=== PATIENT | male | born 1995 | race Caucasian/White ===

== ENCOUNTER → 2016-06-09 | Outpatient (CLI) | payer BC | END | disposition home or self-care (01) | LOC: GMAJ 14:29 | PROVIDERS: ATTEND Family Medicine | DX: M79.609 Pain in unspecified limb (principal) ==

== ENCOUNTER 2018-11-05 15:07 | Observation (INO) | payer BC, OTHER ==
[2018-11-05] MEDS ORDERED: ONDANSETRON ODT 8 MG TAB SL ONE (15:23)
[2018-11-05] MEDS ORDERED: SODIUM CHLORIDE 0.9% 1000ML 1,000 ML IVS ONE (15:23)
[2018-11-05] MEDS ORDERED: ACETYLCYSTEIN 20 % 6,000 MG/30 ML VIAL PO ONE (16:28)
--- NOTE | 2018-11-05 17:24 | CT ---
PROCEDURE: CT Abdomen and Pelvis With Intravenous Contrast CLINICAL INDICATION: The patient is 23 years years old, Male; abd pain nv 8 days TECHNIQUE: Axial computed tomography images of the abdomen and pelvis with intravenous contrast. Sagittal and coronal reformatted images were created and reviewed. This CT exam was performed using one or more of the following dose reduction techniques: automated exposure control, adjustment of the mA and/or kV according to patient size, and/or use of iterative reconstruction technique. COMPARISON: No relevant prior studies available. FINDINGS: LUNG BASES: Unremarkable. No mass. No consolidation. No pleural effusions or pneumothoraces. ABDOMEN: LIVER: The liver is enlarged, measuring 22.6 cm longitudinally in the right lobe. There is a diffuse decrease in hepatic parenchymal density in comparison to a more dense thin rind along the pericholecystic area, consistent with fatty infiltration with minimal focal sparing. The attenuation of the liver measures 45 Hounsfield units as compared to the spleen which measures 88 Hounsfield units. There are no focal defects in the liver. GALLBLADDER AND BILE DUCTS: Unremarkable. There is no evidence of calculi or pericholecystic inflammatory changes. There is no biliary ductal dilatation. PANCREAS: There is some fatty infiltration of the pancreas without evidence of mass or acute pancreatitis. SPLEEN: The spleen is enlarged, measuring 17.1 cm longitudinally by 14.5 cm AP. ADRENALS: Unremarkable. No mass or calcification. KIDNEYS AND URETERS: Unremarkable. There are no acute findings. There is no evidence of solid renal mass, nonobstructive intrarenal calculi or pelvocaliectases/ureterectases. STOMACH AND BOWEL: Fluid-filled colon suggests hypersecretion or poor colonic water resorption as may occur with nonspecific gastroenteritis/enteritis or colitis. The stomach is unremarkable. There are a few mildly thick walled loops of small bowel in the right abdomen. There are few scattered colonic diverticula. No evidence of intestinal obstruction. PELVIS: APPENDIX: There are couple of punctate calcifications in the cecum, one along the appendiceal osseous, possibly small liths. The appendix is present and appears normal. BLADDER: Unremarkable, allowing for the degree of distention. There is no evidence of cystolithiasis or bladder mass. REPRODUCTIVE: The prostate and seminal vesicles are unremarkable.. ABDOMEN and PELVIS: INTRAPERITONEAL SPACE: Unremarkable. No free air or free fluid. No significant focal fluid collection. BONES/JOINTS: There is no evidence of acute fracture, osseous destruction or osteoblastic changes. SOFT TISSUES: Unremarkable. VASCULATURE: Unremarkable. No abdominal aortic aneurysm. LYMPH NODES: There are multiple nonspecific prominent lymph nodes in the mesentery. There is a diffuse inflammatory stranding throughout the central mesentery. There are multiple enlarged central mesenteric lymph nodes the largest with a short axis diameter up to 1.1 cm. IMPRESSION: 1. Mild hepatomegaly. 2. Hepatic steatosis with pericholecystic sparing. 3. Moderate splenomegaly. Most likely differential considerations include portal hypertension, infectious/inflammatory conditions, and hematologic diseases such as anemias and extra medullary hematopoiesis. Neoplasia, storage diseases and sequestration also in the differential but much less likely. Portal or splenic vein thrombosis also in the differential, although not present in this case. 4. Fluid-filled colon suggests hypersecretion or poor colonic water resorption as may occur with nonspecific gastroenteritis/enteritis or colitis. In conjunction with mild mural thickening in a few loops of ileum, nonspecific enteritis is most likely. 5. Nonspecific central mesenteric reticulation most likely represent a viral mesenteritis. This "terrell mesentery" can be idiopathic or result from various vascular disorders as well as neoplastic infiltration. A follow up examination is recommended as clinically warranted. 6. Mild central mesenteric adenopathy. Electronically signed by: Angie Irwin MD 11/05/2018 5:22 PM CDT
[2018-11-05] MEDS ORDERED: metroNIDAZOLE IV PREMIX 500MG 500 MG in PREMIX BAG 1 BAG IVPB ONE (17:42)
[2018-11-05] MEDS ORDERED: levoFLOXacin 500MG IV 500 MG in PREMIX BAG 1 BAG IVPB ONE (17:42)
[2018-11-05] MEDS ORDERED: levoFLOXacin 500MG IV 100 ML IVPB ONE (17:45)
--- NOTE | 2018-11-05 18:08 | ED.PDOC ---
History of Present Illness - General Chief Complaint: Abdominal Pain Stated Complaint: RUQ ABD PAIN Time Seen by Provider: 11/05/18 15:20 Source: patient Exam Limitations: no limitations - History of Present Illness Initial Comments: the patient is a 23-year-old male presenting to the emergency room secondary to symptoms lasting from 6-8 days. He has been having some intermittent nausea and vomiting. Today he started having more abdominal pain. No jaundice. No history of hepatitis. No sore throat or runny nose. Questionable fever in the last week. No history of any gallbladder or appendix issues in the past. No history of any dietary restrictions. No history of any cancers. He has been having some diarrhea that is watery. He has been having some vomitus but no blood and no bile. He was diaphoretic and his primary care doctor's appointment today. He was sent over here for additional workup. Timing/Duration: 1 week Severity: moderate Improving Factors: nothing Worsening Factors: nothing Associated Symptoms: diaphoresis, loss of appetite, malaise, nausea/vomiting, weakness Allergies/Adverse Reactions: Allergies NO KNOWN ALLERGY Allergy (Verified 11/05/18 15:13) Home Medications: Ambulatory Orders Citalopram Hydrobromide [Citalopram] 20 mg PO DAILY 11/05/18 metFORMIN HCL [Glucophage] 500 mg PO DAILY 11/05/18 Review of Systems - Review of Systems Constitutional: States: malaise EENTM: States: no symptoms reported Respiratory: States: no symptoms reported Cardiology: States: no symptoms reported Gastrointestinal/Abdominal: States: abdominal pain, diarrhea, nausea, vomiting Genitourinary: States: no symptoms reported Musculoskeletal: States: no symptoms reported Skin: States: no symptoms reported Neurological: States: no symptoms reported Endocrine: States: no symptoms reported All other Systems: No Change from Baseline Past Medical History (General) - Patient Medical History Hx Diabetes: Yes Hx Cancer: No Hx Hepatitis C: No Surgical History: tonsillectomy - Vaccination History Hx Tetanus, Diphtheria Vaccination: Yes Hx Influenza Vaccination: Yes Hx Pneumococcal Vaccination: No Immunizations Up to Date: No - Social History Hx Tobacco Use: No Hx Alcohol Use: No Hx Substance Use: No Hx Substance Use Treatment: No Hx Depression: No Family Medical History - Family History Mother Family History: No Known Living Status: Still Living Physical Exam - Physical Exam General Appearance: Alert, Ill Appearing Eye Exam: bilateral normal Ears, Nose, Throat: hearing grossly normal, normal ENT inspection Neck: full range of motion, supple Respiratory: lungs clear, normal breath sounds, no respiratory distress, no accessory muscle use Cardiovascular/Chest: normal peripheral pulses, no edema, tachycardia Peripheral Pulses: radial,right: 2+, radial,left: 2+, dorsalis pedis,right: 2+, dorsalis pedis,left: 2+ Gastrointestinal/Abdominal: other - obese. Diffuse vague discomfort. No palpable mass. Rectal Exam: deferred Back Exam: no CVA tenderness, no vertebral tenderness Extremity: normal range of motion, non-tender, normal inspection, no pedal edema, normal capillary refill Neurologic: supervising chef II-XII nml as tested, alert, normal mood/affect, oriented x 3 Skin Exam: normal color Comments: Vital Signs - 24 hr 11/05/18 15:18 Temperature 96.7 F L Pulse Rate [ 122 H MONITOR] Respiratory 20 Rate Blood Pressure 151/95 [LA] O2 Sat by Pulse 96 Oximetry Progress - Progress Progress: 11/05/18 18:09 the patient is a 23-year-old male presenting to emergency room with nausea and vomiting and diarrhea for the better part of a week. He was significantly tachycardic likely related to dehydration. He has finished his first liter. Blood culture has been performed. EBV and CMV titers are being sent. He is being placed empirically on broad-spectrum antibiotics of metronidazole and ciprofloxacin. Anti-emetics are being used to control symptoms. We will continue gentle hydration. The patient will be admitted for monitoring overnight to make sure he gets back hydrated and symptoms remain controlled. Obviously if symptoms persist or worsen then additional studies may be warranted. the patient does have some hepatosplenomegaly. The hepatomegaly may be due to fatty liver. These will need to be followed. 11/05/18 18:11 - Results/Orders Results/Orders: CT of abdomen and pelvis shows no evidence of overt acute gallbladder disease or appendicitis. He does have some mesenteric inflammation and lymphadenopathy. He does have mild small bowel thickening and some fluid in the intestine consistent with a diarrheal state. No obvious obstruction. No free air. No obvious ischemia. Laboratory Tests 11/05/18 11/05/18 11/05/18 15:08 15:08 15:08 WBC 11.9 H RBC 5.52 Hgb 16.6 Hct 48.1 MCV 87.2 MCH 30.1 MCHC 34.6 RDW 13.2 Plt Count 223 MPV 7.8 Absolute Neuts (auto) 9.80 H Absolute Lymphs (auto) 1.20 Absolute Monos (auto) 0.80 Absolute Eos (auto) 0.00 Absolute Basos (auto) 0.10 Neutrophils % 82.3 H Lymphocytes % 10.1 L Monocytes % 6.9 Eosinophils % 0.3 L Basophils % 0.4 Sodium 134 L Potassium 3.6 Chloride 99 L Carbon Dioxide 21 Anion Gap 17.6 BUN 12 Creatinine 1.12 BUN/Creatinine Ratio 10.7 Random Glucose 141 H Serum Osmolality 270.4 L Lactic Acid 1.3 Calcium 9.1 Magnesium 1.6 L Total Bilirubin 0.8 AST 33 ALT 56 Alkaline Phosphatase 46 Creatine Kinase 90 CK-MB (CK-2) 0.6 CK-MB (CK-2) % Not Reportable Troponin I < 0.02 Serum Total Protein 8.5 H Albumin 4.7 Globulin 3.8 H Albumin/Globulin Ratio 1.2 Amylase 38 Lipase 31 Urine Color Urine Appearance Urine pH Ur Specific [place] Urine Protein Urine Glucose (UA) Urine Ketones Urine Blood Urine Nitrite Urine Bilirubin Urine Urobilinogen Ur Leukocyte Esterase Urine RBC Urine WBC Ur Epithelial Cells Urine Bacteria 11/05/18 15:15 WBC RBC Hgb Hct MCV MCH MCHC RDW Plt Count MPV Absolute Neuts (auto) Absolute Lymphs (auto) Absolute Monos (auto) Absolute Eos (auto) Absolute Basos (auto) Neutrophils % Lymphocytes % Monocytes % Eosinophils % Basophils % Sodium Potassium Chloride Carbon Dioxide Anion Gap BUN Creatinine BUN/Creatinine Ratio Random Glucose Serum Osmolality Lactic Acid Calcium Magnesium Total Bilirubin AST ALT Alkaline Phosphatase Creatine Kinase CK-MB (CK-2) CK-MB (CK-2) % Troponin I Serum Total Protein Albumin Globulin Albumin/Globulin Ratio Amylase Lipase Urine Color Yellow Urine Appearance Clear Urine pH 6.0 Ur Specific [place] 1.020 Urine Protein 30 Urine Glucose (UA) Negative Urine Ketones Negative Urine Blood Negative Urine Nitrite Negative Urine Bilirubin Small H Urine Urobilinogen 0.2 Ur Leukocyte Esterase Negative Urine RBC 0-1 Urine WBC 0-1 Ur Epithelial Cells 0-1 Urine Bacteria 0 Departure - Departure Clinical Impression: Mesenteric adenitis, Moderate dehydration, Splenomegaly, Hepatomegaly Disposition: Admit Patient Departure Forms: ED Discharge - Pt. Copy, Patient Portal Self Enrollment Referrals: Xavier Eldridge MD [Primary Care Provider] - 1-2 Weeks Home Medications: Ambulatory Orders Citalopram Hydrobromide [Citalopram] 20 mg PO DAILY 11/05/18 metFORMIN HCL [Glucophage] 500 mg PO DAILY 11/05/18 Decision To Admit - Decistion To Admit Decision to Admit Reason: Medical Nature Decision to Admit Date: 11/05/18 Decision to Admit Time: 18:12
--- NOTE | 2018-11-05 18:31 | HP ---
SUPERVISING PHYSICIAN: Mary Lou Jeter MD CHIEF COMPLAINT: Right upper quadrant abdominal pain. HISTORY OF PRESENT ILLNESS: Mr. Raya is an 23-year-old male patient that presented to the Emergency Room after he was seen in Dr. Eldridge' office today. He noted he had been having nausea, vomiting and right upper quadrant pain for the last 6 to 8 days. He denied any significant fevers. He has no history of hepatitis or any significant dietary restrictions. He does have a history of diabetes on oral therapy. He notes he has been having some watery diarrhea on and off and has vomited a few times, but denies any blood or bile. In the [facility] office today, he was notably diaphoretic and at that time, he was sent for additional workup. He does note that last weekend, he was around a friend that had similar symptoms. His laboratory studies showed mild leukocytosis of 11,900 with a slight left shift. Chemistries showed a low sodium of 134, BUN 12, creatinine 1.12. Lactic acid was normal at 1.3. Magnesium was low at 1.6. Liver functions were all within normal limits. Amylase and lipase were both normal. Urinalysis was unremarkable with just a small amount of bilirubin. He had an abdominopelvic CT with contrast and per radiologic interpretation there was note of mild hepatomegaly with some hepatic steatosis. There was note of moderate splenomegaly and fluid-filled colon suggesting possible nonspecific gastroenteritis versus colitis. There was also note of central mesenteric reticulation most likely representing viral mesenteritis. It was also noted that he had some mild central mesenteric adenopathy. He was given Zofran and fluid which did improve his symptoms. He was also started on Flagyl and Levaquin with concerns for possible infectious process. He is now going to be placed in Observation for ongoing fluid replacement and further hydration as well as further evaluation. He was placed in Observation in stable condition. PAST MEDICAL HISTORY: 1. Anxiety. 2. Diabetes mellitus on oral therapy. 3. Hyperhidrosis. 4. History of salivary gland stones. PAST SURGICAL HISTORY: 1. Tubes in his ears x3. 2. Tonsillectomy and adenoidectomy. HOME MEDICATIONS: 1. Metformin 500 mg daily. 2. Citalopram 20 mg daily. ALLERGIES: NO KNOWN DRUG ALLERGIES. FAMILY HISTORY: His mom has history of diabetes mellitus, type 2. His dad is healthy. He has one sister who is healthy. 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 He lives in [place]. He has never smoked, rarely drinks any alcohol and does not use illicit drugs. He is single. REVIEW OF SYSTEMS: CONSTITUTIONAL: He reports general malaise, fatigue. No reported fevers, no reported unexplained weight loss. HEENT: Negative for sore throats, earaches, nasal congestion, vision changes, headaches. RESPIRATORY: He denies any shortness of breath, coughing, wheezing. CARDIOVASCULAR: Negative for chest pain, palpitations or syncopal episodes. GASTROINTESTINAL: Positive for right upper quadrant abdominal pain, diarrhea, nausea and vomiting. GENITOURINARY: Negative for dysuria, hematuria, polyuria. SKIN: Denies rashes, lesions. NEUROLOGIC: Denies ataxia, seizures or other neurological sensory deficit. PHYSICAL EXAMINATION: VITAL SIGNS: On admission, he had a temperature of 103.1, pulse 102, blood pressure 121/85, respirations 18, saturation 99% on room air. Admission weight was 125.9 kg. GENERAL: The patient appeared to be a little unwell, but not in any acute distress. He is well-nourished and appears to be slightly dehydrated. HEENT: Tympanic membranes clear bilaterally. Oropharynx is pink with dry mucous membranes. No lesions noted. NECK: Supple, nontender with full range of motion. No jugular venous distention noted. RESPIRATORY: Lungs clear to auscultation bilaterally without any rhonchi, wheezes or rales. CARDIOVASCULAR: Regular rate and rhythm without any appreciable murmurs, gallops, or rubs. ABDOMEN: Diffusely tender on palpation. Obese, but no point tenderness. No rebound tenderness, no guarding. BACK: No CVA or vertebral tenderness. EXTREMITIES: There is no cyanosis, clubbing or edema. NEUROLOGIC: The patient is alert and oriented times three. Cranial nerves II- XII are grossly intact. Facial features are symmetrical. Extraocular movements are within normal limits. There is no nystagmus noted. LABORATORY: White count showed a slight leukocytosis of 11,900, hemoglobin 16.6, hematocrit 40.1, platelet count 223,000. Differential showed a left shift. Chemistries showed low sodium of 134 as well as low chloride 99, potassium 3.6, anion gap normal, BUN 12, creatinine 1.12, glucose 141, lactic acid 1.3, calcium 9.1, magnesium low at 1.6. Liver functions all within normal limits. Troponin less than 0.02. Amylase and lipase both normal. Urinalysis shows just small amount of bilirubin, otherwise within normal limits. RADIOLOGY: Abdominopelvic CT with contrast per radiologic interpretation showed no evidence of overt acute gallbladder disease or appendicitis. He does have some mesenteric inflammation and lymphadenopathies. He does have small mid bowel thickening with fluid in the intestine consistent with diarrheal state. No obvious obstruction, no free air, no obvious ischemia. ASSESSMENT: 1. Acute abdominal pain with mesenteric adenitis, uncertain etiology. 2. Febrile illness with mild leukocytosis secondary to #1. 3. Moderate dehydration secondary to #1. 4. Splenomegaly and hepatomegaly on CT findings, uncertain etiology, needing followup. 5. History of anxiety. 6. Diabetes mellitus, type 2, on oral therapy. 7. History of hyperhidrosis. PLAN: The patient is going to be placed in Observation for IV therapy. He was begun on antibiotics in the Emergency Room with Levaquin and Flagyl. These will be continued. I will consult with Dr. Eldridge, his primary care physician, and also look to see if we can get a consultation with GI specialist who is here tomorrow, which is Dr. Smith. He will be given Phenergan and Zofran as needed for any nausea. We will go ahead and do stool studies including C. difficile, stool culture, leukocytes and fecal occult blood. We will anticipate length of stay to be one to two days. Until he can transition to outpatient management, we will continue to monitor and treat as needed. #[id number] [facility]
[2018-11-05] MEDS ORDERED: metroNIDAZOLE IV PREMIX 500MG 100 ML IVPB ONE ×2 (18:45→20:09)
[2018-11-05] MEDS ORDERED: IBUPROFEN 400 MG TAB PO ONE (19:24)
[2018-11-05] MEDS ORDERED: IBUPROFEN 200 MG TAB ONE (19:25)
[2018-11-05] MEDS ORDERED: ACETAMINOPHEN 325 MG TAB PO PRN (19:31)
[2018-11-05] MEDS ORDERED: ONDANSETRON INJ 4 MG/2 ML VIAL IV PRN (19:31)
[2018-11-05] MEDS ORDERED: SODIUM CHLORIDE 0.9% (FLUSH) 10 ML SYG IV PRN (19:31)
[2018-11-05] MEDS ORDERED: DEXTROSE 50% 25 GM/50 ML SYG IV PRN (19:33)
[2018-11-05] MEDS ORDERED: GLUCAGON INJ 1 MG VIAL SUBCU PRN (19:33)
[2018-11-05] MEDS ORDERED: IV SET AND CAP CHANGE INJ INJ SCH (20:00)
[2018-11-05] MEDS ORDERED: IBUPROFEN 400 MG TAB PO PRN (20:12)
[2018-11-05] MEDS: KCL 20 MEQ/NS 1,000 ML IVS PRN (20:13)
[2018-11-05] MEDS ORDERED: LACTATED RINGERS 1,000 ML IVS ONE (20:14)
[2018-11-05] MEDS: INSULIN LISPRO 100 UNITS/ML PEN SUBCU SCH (21:00)
[2018-11-05] MEDS ORDERED: MAGNESIUM SULFATE PREMIX 2GM 2 GM in PREMIX BAG 1 BAG IVPB ONE (23:26)
[2018-11-05] MEDS ORDERED: MAGNESIUM SULFATE PREMIX 2GM 50 ML IVPB ONE (23:29)
[2018-11-06] MEDS: metroNIDAZOLE IV PREMIX 500MG 500 MG in PREMIX BAG 1 BAG IVPB SCH ×2 (01:34→09:46)
[2018-11-06] MEDS: KCL 20 MEQ/NS 1,000 ML IVS PRN ×2 (04:59→13:59)
[2018-11-06] MEDS: INSULIN LISPRO 100 UNITS/ML PEN SUBCU SCH ×2 (07:09→12:16)
--- NOTE | 2018-11-06 07:26 | RAD ---
Procedure: XR ABDOMEN 2 VIEWS SUPINE ERECT Exam Date: 11/06/2018 Ordering Provider: Darren Ann NP Clinical Indication: abdominal pain Comparison: 11/05/2018 CT abdomen pelvis Findings: Nonobstructive bowel gas pattern. There is no pneumoperitoneum. There are no suspicious calcifications. There is no acute osseous abnormality. Impression: 1. No acute findings. Electronically signed by: Sylvester Payton MD 11/06/2018 7:22 AM CDT
[2018-11-06] MEDS ORDERED: metroNIDAZOLE IV PREMIX 500MG 100 ML IVPB ONE (09:42)
[2018-11-06 14:05] VITALS: BP 142/84; TEMP 97.6; O2SAT 98
--- NOTE | 2018-11-06 15:48 | CONS ---
DATE OF CONSULTATION: 11/06/18 REASON FOR CONSULTATION: Abdominal pain, enteritis. HISTORY OF PRESENT ILLNESS: This is a 23-year-old white male who presented to the Emergency Room with abdominal pain from Dr. Eldridge' office. He had been experiencing approximately 2 weeks of increasing severity of abdominal pain. In the last 2 days, he noticed loose stools, about 5 times, nonbloody. He also had nausea and vomiting and that prompted him to go to the Emergency Department after seeing his primary doctor. He did offer that he had been to an [employer] conference the week prior. At that time, no known sick contacts, but definitely was with large crowds. No sick contacts at home. He is currently feeling better. He denies abdominal pain, nausea, vomiting and no diarrhea. PAST MEDICAL HISTORY: 1. Anxiety. 2. Diabetes. PAST SURGICAL HISTORY: 1. Ear tubes. 2. Tonsillectomy. CURRENT MEDICATIONS: 1. Metformin. 2. Citalopram. FAMILY HISTORY: Diabetes. No significant coronary or vascular disease. 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 No significant alcohol and denies any drugs. REVIEW OF SYSTEMS: CONSTITUTIONAL: He again currently has no fever, chills HEENT: No headache. No visual changes, no sore throat. RESPIRATORY: No cough or wheeze. CARDIOVASCULAR: No chest pain or palpitations. No shortness of breath. GASTROINTESTINAL: As above. GENITOURINARY: No frequency, dysuria or hematuria. EXTREMITIES: No complaints. NEUROLOGIC: No complaints. PHYSICAL EXAMINATION: GENERAL: He is conscious, alert and well oriented. He is in no distress. VITAL SIGNS: He had reported T-max of 103. He is currently afebrile. Pulse 80s. Blood pressure normal. Oxygen saturation 99% on room air. GENERAL: He is an obese at 125 kg. HEENT: Head is normocephalic, atraumatic. Pupils are equal and reactive. Sclerae anicteric. Oral mucosa is moist. NECK: Supple. No adenopathy, jugular venous distention or thyromegaly. CHEST: Clear and equal bilaterally. HEART: Regular rate and rhythm with no murmurs, rubs or gallops. ABDOMEN: Obese, soft, nontender. No rebound, no guarding, no masses. EXTREMITIES: No cyanosis, clubbing or edema. LABORATORY: His labs were reviewed. White count 11, hematocrit 40, platelet count 223. Lactic acid 1.3. BNP relatively normal. RADIOLOGY: CAT scan which I reviewed myself shows mesenteric adenitis with no obvious source of significant enteritis. The appendix appears normal as does the colon. No free air, etc. ASSESSMENT: Mesenteric adenitis, likely viral secondary to his contact with a large group of people. No evidence of acute abdomen. RECOMMENDATION: He feels better now. We did talk about reducing his sugar content and ultimately controlling his weight as he is only 23 and obese at this time. I agree with him being able to be discharged home with no therapies. I recommend he drink a lot of water and, again, limit sugar intake and followup p.r.n. Thank you for asking me to evaluate Mr. Raya. #[id number] [facility]
== END 2018-11-06 16:15 | disposition home or self-care (01) ==
LOC: ER 15:07 → INTOOBSV 18:29 → MS 18:29
PROVIDERS: ADMIT Nurse Practitioner Family; ATTEND Nurse Practitioner Family
DX: I88.0 Nonspecific mesenteric lymphadenitis (principal); R10.11 Right upper quadrant pain; D72.829 Elevated white blood cell count, unspecified; R50.9 Fever, unspecified; E86.0 Dehydration; E87.1 Hypo-osmolality and hyponatremia; E83.42 Hypomagnesemia; R16.2 Hepatomegaly with splenomegaly, not elsewhere classified; R61 Generalized hyperhidrosis; E11.9 Type 2 diabetes mellitus without complications; F41.9 Anxiety disorder, unspecified; Z79.84 Long term (current) use of oral hypoglycemic drugs; Z79.899 Other long term (current) drug therapy
CPT/HCPCS: 96361; 96366 ×2; 96367; 96365; 96376; J1956; J3490 ×3; J7030; J3475; J3480 ×3; J7120; 80048; 82270; 82553; 80053; 82948 ×3; 36415 ×5; 82150; 86644; 86645; 81001; 85025 ×2; 82550; 87040 ×2; 87045; 87046; 83690; 83735 ×2; 84484; 86664; 86665 ×2; 36416 ×2; 87324; 83605; 83630; 74019; 74177; 94760 ×2; 99285; G0378; 87449